=== PATIENT | female | born 2000 | race Caucasian/White ===

== ENCOUNTER 2020-01-09 09:35 | Emergency (ER) | payer OTHER ==
[~2020-01-09] VITALS: Ht 157.5 cm; Wt 81.8 kg
[2020-01-09 09:51] VITALS: BP 142/86
[2020-01-09] MEDS ORDERED: LIDOCAINE 1%/EPI 1:100,000 20 ML VIAL. INJ ONE (10:30)
--- NOTE | 2020-01-09 10:35 | RAD ---
PROCEDURE: ELBOW LEFT 3V STUDY DATE: 01/09/2020 CLINICAL INDICATION / HISTORY: Reason: FELL, LEFT ELBOW PAIN / Spl. Instructions: / History: . TECHNIQUE: Left Elbow 3 views COMPARISON: None FINDINGS: 3 views of the left elbow demonstrate no evidence of fracture, subluxation, or dislocation. Soft tissues unremarkable. IMPRESSION: No acute osseous abnormality. Electronically signed by: Opal Buenrostro MD (01/09/2020 10:32 AM) [id number]
--- NOTE | 2020-01-09 11:00 | RAD ---
Examination: CT HEAD AND CERVICAL SPINE WO History: Reason: [place] at the park, left side head injury, neck pain / Spl. Instructions: / History: Comparison/Correlation: None Findings: Axial images of the head and cervical spine were obtained without contrast. Sagittal and coronal reformatted images were obtained of cervical spine were provided. Ventricles are normal size. No intracranial hemorrhage, midline shift, or mass effect. Scalp laceration is present at the left anterior, lateral frontal region. No radiopaque foreign body. Alignment is normal. Vertebral body heights and disc spaces are adequate. Relatively limited lordosis noted which may represent normal variant or muscle spasm. Soft tissues are unremarkable. Neural foramina are widely patent. Impression: Left frontal scalp laceration. No intracranial hemorrhage. Cervical spine is unremarkable. PQRS Compliance Statement: One or more of the following individualized dose reduction techniques were utilized for this examination: 1. Automated exposure control 2. Adjustment of the mA and/or kV according to patient size 3. Use of iterative reconstruction technique Electronically signed by: Jd Munson MD (01/09/2020 10:57 AM) [id number]
--- NOTE | 2020-01-09 11:12 | PHYS DOC ---
Past Medical History Past Medical History: No Pertinent History Past Surgical History: No Surgical History Smoking Status: Never Smoker Alcohol Use: None General Adult EDM: Chief Complaint: LACERATION/AVULSION HPI: HPI: Patient is a 19 year old female presented for evaluation due to head injury and left elbow injury. Patient was out in the park, walking her dog, had the blum on. The dog ran after squirrel, pulled patient down, she fell down, hit her head on the ground and left elbow on the ground. Patient denied any loss of consciousness, is up today on her vaccination status. NO BACK PAIN, NO KNEE PAIN, NO HIP PAIN. NO WRIST PAIN. Patient was denied any other injury. Review of Systems: Review of Systems: Constitutional: Denies fever or chills. [] Eyes: Denies change in visual acuity. [] HENT: Denies nasal congestion or sore throat. [] Respiratory: Denies cough or shortness of breath. [] Cardiovascular: Denies chest pain or edema. [] GI: Denies abdominal pain, nausea, vomiting, bloody stools or diarrhea. [] : Denies dysuria. [] Musculoskeletal: Denies back pain. Positive for left elbow pain. Integument: Denies rash. Positive for facial laceration. Neurologic: Positive for headache, NO focal weakness or sensory changes. [] Endocrine: Denies polyuria or polydipsia. [] Lymphatic: Denies swollen glands. [] Psychiatric: Denies depression or anxiety. [] Heart Score: Risk Factors: Risk Factors: DM, Current or recent (<one month) smoker, HTN, HLP, family history of CAD, obesity. Risk Scores: Score 0 - 3: 2.5% MACE over next 6 weeks - Discharge Home Score 4 - 6: 20.3% MACE over next 6 weeks - Admit for Clinical Observation Score 7 - 10: 72.7% MACE over next 6 weeks - Early Invasive Strategies Current Medications: Current Medications Medications (Trade) Dose Ordered Sig/Malcolm Start Time Stop Time Status Last Admin Dose Admin Lidocaine/ Epinephrine (LIDOCAINE 1%-EPI 1:100,000 Multi-Dose) 20 ml 1X ONCE 01/09/20 10:30 01/09/20 10:31 DC 01/09/20 10:10 20 ML Allergies: Allergies: Allergies Coded Allergies Type Severity Reaction Last Updated Verified No Known Drug Allergies 01/09/20 No Physical Exam: PE: Constitutional: Well developed, well nourished, no acute distress, non-toxic appearance. [] HENT: Normocephalic, 12 cm laceration on left side forehead just above left eye brown, the edge of the lacerated wound is contused, there is 2 cm laceration on chin area, bilateral external ears normal, oropharynx moist, no oral exudates, nose normal. [] Eyes: PERRLA, EOMI, conjunctiva normal, no discharge. [] Neck: Normal range of motion, no tenderness, supple, no stridor. [] Cardiovascular:Heart rate regular rhythm, no murmur [] Lungs & Thorax: Bilateral breath sounds clear to auscultation [] Abdomen: Bowel sounds normal, soft, no tenderness, no masses, no pulsatile mass es. [] Skin: Warm, dry, no erythema, no rash. Laceration as described above. Back: No tenderness, no CVA tenderness. [] Extremities: there is skin abrasion on back of left elbow, tender to palpation, no cyanosis, no clubbing, ROM intact, no edema. [] Neurologic: Alert and oriented X 3, normal motor function, normal sensory function, no focal deficits noted. [] Psychologic: Affect normal, judgement normal, mood normal. [] Current Patient Data: Labs: Laboratory Tests Test 01/09/20 10:14 POC Urine HCG, Qualitative Hcg negative (Negative) Vital Signs: Vital Signs Date Time Temp Pulse Resp B/P (MAP) Pulse Ox O2 Delivery O2 Flow Rate FiO2 01/09/20 09:51 98.3 85 18 142/86 (104) 98 Room Air 98.3 EKG: EKG: [] Radiology/Procedures: Radiology/Procedures: [][facility] [address] [place] [address] IMAGING REPORT Signed PATIENT: KELLY DUGGAN ACCOUNT: [id number] : 2000 LOCATION: ER AGE: 19 SEX: F EXAM STATUS: REG ER ORD. PHYSICIAN: SUGEY JOHNSON DO REASON: [place] at the park, left side head injury, neck pain PROCEDURE: CT HEAD AND CERVICAL SPINE WO Examination: CT HEAD AND CERVICAL SPINE WO History: Reason: [place] at the park, left side head injury, neck pain / Spl. Instructions: / History: Comparison/Correlation: None Findings: Axial images of the head and cervical spine were obtained without contrast. Sagittal and coronal reformatted images were obtained of cervical spine were provided. Ventricles are normal size. No intracranial hemorrhage, midline shift, or mass effect. Scalp laceration is present at the left anterior, lateral frontal region. No radiopaque foreign body. Alignment is normal. Vertebral body heights and disc spaces are adequate. Relatively limited lordosis noted which may represent normal variant or muscle spasm. Soft tissues are unremarkable. Neural foramina are widely patent. Impression: Left frontal scalp laceration. No intracranial hemorrhage. Cervical spine is unremarkable. RS Compliance Statement: One or more of the following individualized dose reduction techniques were utilized for this examination: 1. Automated exposure control 2. Adjustment of the mA and/or kV according to patient size 3. Use of iterative reconstruction technique Electronically signed by: Jd Márquez MD (01/09/2020 10:57 AM) [id number] DICTATED and SIGNED BY: JD MÁRQUEZ MD DATE: 01/09/20 1057 [facility] [address] [facility] [place], [place] [id number] IMAGING REPORT Signed PATIENT: KELLY DUGGAN ACCOUNT: [id number] : 2000 LOCATION: ER AGE: 19 SEX: F EXAM STATUS: PRE ER ORD. PHYSICIAN: SUGEY JOHNSON DO REASON: FELL, LEFT ELBOW PAIN PROCEDURE: ELBOW LEFT 3V PROCEDURE: ELBOW LEFT 3V STUDY DATE: 01/09/2020 CLINICAL INDICATION / HISTORY: Reason: FELL, LEFT ELBOW PAIN / Spl. Instructions: / History: . TECHNIQUE: Left Elbow 3 views COMPARISON: None FINDINGS: 3 views of the left elbow demonstrate no evidence of fracture, subluxation, or dislocation. Soft tissues unremarkable. IMPRESSION: No acute osseous abnormality. Electronically signed by: Christine Buenrostro MD (01/09/2020 10:32 AM) [id number] DICTATED and SIGNED BY: CHRISTINE BUENROSTRO MD DATE: 01/09/20 1032 Laceration Prepaired Procedure #1: Indication: Laceration of left side forehead area Procedure: The patient was placed in the appropriate position and anesthesia around the left side forehead area with 1% lidocaine with epinephrine, 15 ml was used. The area was then cleaned with saline and debrided some of contused skin off. The laceration was closed with 5 sutures subcutaneous with 4-0-vicryl, and the skin was closed with 12 sutures, 5-0-prolene. The wound area was then dressed with triple antibiotic ointment and nonstick gauze.. Total repaired wound length: 12 cm Other Items:none The patient tolerated the procedure well Complications: none Laceration Prepaired Procedure #2: Indication: chin Procedure: The patient was placed in the appropriate position and anesthesia around the chin with 6 ml of 1% lidocaine with epinephrine . The area was then cleaned with saline. The laceration was closed with 5 sutures, 5-0-prolene. The wound area was then dressed with triple antibiotic ointment and covered with nonstick gauze. Total repaired wound length: 2 cm Other Items: [place] The patient tolerated the procedure well Complications: none Course & Med Decision Making: Course & Med Decision Making Pertinent Labs and Imaging studies reviewed. (See chart for details) [] Kari Disclaimer: Kari Disclaimer: This electronic medical record was generated, in whole or in part, using a voice recognition dictation system. Departure Departure Impression: Primary Impression: Head injury due to trauma Additional Impressions: Facial laceration Left elbow contusion Disposition: 01 HOME, SELF-CARE Condition: IMPROVED Referrals: NO PCP (PCP) please follow up with your doctor in 7 days for sutures removal Patient Instructions: Elbow Contusion, Facial Laceration, Head Injury, Adult Scripts Ibuprofen (IBUPROFEN) 800 Mg Tablet 800 MG PO PRN Q8HRS PRN for PAIN, #30 TAB Prov: SUGEY JOHNSON DO 01/09/20 Justicifation of Admission Dx: Justifications for Admission: Justification of Admission Dx: N/A SUGEY JOHNSON DO Jan 09, 2020 11:12
[2020-01-09] MEDS ORDERED: NEOMY/BACITR/POLYMYXIN OINT PACKET. TP ONE (12:30)
[2020-01-09] MEDS ORDERED: HYDROcodone/APAP 5/325MG 1 TAB TABLET PO ONE (12:30)
[2020-01-09] MEDS ORDERED: IBUPROFEN 400 MG TABLET. PO ONE (12:30)
[2020-01-09] MEDS ORDERED: IBUP-1060 PO (12:50)
== END 2020-01-09 13:40 | disposition home or self-care (01) ==
LOC: ER 09:35
DX: S01.81XA Laceration without foreign body of other part of head, initial encounter (principal); S50.02XA Contusion of left elbow, initial encounter; R51 Headache; M54.2 Cervicalgia; W18.09XA Striking against other object with subsequent fall, initial encounter; Y93.K1 Activity, walking an animal; Y92.89 Other specified places as the place of occurrence of the external cause; Y99.8 Other external cause status
CPT/HCPCS: 12011; 12054; 70450; 72125; 73080; 81025; 99285; J3490

== ENCOUNTER 2020-01-18 11:29 | Emergency (ER) | payer OTHER ==
[~2020-01-18] VITALS: Ht 157.5 cm; Wt 79.5 kg
[~2020-01-18 11:29] MED LIST: IBUP-1060 PO
[2020-01-18 11:40] VITALS: BP 134/80
--- NOTE | 2020-01-18 12:02 | PHYS DOC ---
Past Medical History Past Medical History: No Pertinent History Past Surgical History: No Surgical History Smoking Status: Never Smoker Alcohol Use: None General Adult EDM: Chief Complaint: SUTURE/STAPLE REMOVAL HPI: HPI: Patient is a 19 year old female who presents with here during the after she was hiking and she fell. She has [address] to the chin and [address] to the left bahai and forehead area. Areas are healed and scabbed and edges are approximated. No signs of infection. Patient denies any oozing or pain. She denies any fevers. Review of Systems: Review of Systems: Integument: Denies rash. Facial sutures in place. [] Heart Score: Risk Factors: Risk Factors: DM, Current or recent (<one month) smoker, HTN, HLP, family history of CAD, obesity. Risk Scores: Score 0 - 3: 2.5% MACE over next 6 weeks - Discharge Home Score 4 - 6: 20.3% MACE over next 6 weeks - Admit for Clinical Observation Score 7 - 10: 72.7% MACE over next 6 weeks - Early Invasive Strategies Allergies: Allergies: Allergies Coded Allergies Type Severity Reaction Last Updated Verified No Known Drug Allergies 01/09/20 No Physical Exam: PE: Constitutional: Well developed, well nourished, no acute distress, non-toxic appearance. [] HENT: Normocephalic, atraumatic, bilateral external ears normal, oropharynx moist, no oral exudates, nose normal. [] Eyes: PERRLA, EOMI, conjunctiva normal, no discharge. [] Neck: Normal range of motion, no tenderness, supple, no stridor. [] Cardiovascular:Heart rate regular rhythm, no murmur [] Lungs & Thorax: Bilateral breath sounds clear to auscultation [] Abdomen: Bowel sounds normal, soft, no tenderness, no masses, no pulsatile masses. [] Skin: Warm, dry, no erythema, no rash. Left forehead bahai area sutures and chin sutures in place.[] Back: No tenderness, no CVA tenderness. [] Extremities: No tenderness, no cyanosis, no clubbing, ROM intact, no edema. [] Neurologic: Alert and oriented X 3, normal motor function, normal sensory function, no focal deficits noted. [] Psychologic: Affect normal, judgement normal, mood normal. [] Current Patient Data: Vital Signs: Vital Signs Date Time Temp Pulse Resp B/P (MAP) Pulse Ox O2 Delivery O2 Flow Rate FiO2 01/18/20 11:40 98.7 66 16 134/80 (98) 99 Room Air 98.7 EKG: EKG: [] Radiology/Procedures: Radiology/Procedures: [] Course & Med Decision Making: Course & Med Decision Making Pertinent Labs and Imaging studies reviewed. (See chart for details) Sutures removed by Mere Triplett RN. Patient tolerated well. She can follow- up with her primary care physician if needed. See HPI. [] Dragon Disclaimer: Dragon Disclaimer: This electronic medical record was generated, in whole or in part, using a voice recognition dictation system. Departure Departure Impression: Primary Impression: Visit for suture removal Disposition: 01 HOME, SELF-CARE Condition: STABLE Referrals: NO PCP (PCP) Patient Instructions: Suture Removal Additional Instructions: Follow-up with primary care provider if needed. Continue to keep the area clean. Justicifation of Admission Dx: Justifications for Admission: Justification of Admission Dx: N/A STALIN JONES APPRENTICE COSMETOLOGIST Jan 18, 2020 12:02
== END 2020-01-18 12:24 | disposition home or self-care (01) ==
LOC: ER 11:29
DX: S01.81XD Laceration without foreign body of other part of head, subsequent encounter (principal); W18.39XD Other fall on same level, subsequent encounter
CPT/HCPCS: 99281